=== PATIENT | male | born 1955 | race Caucasian/White ===

== ENCOUNTER 2017-05-27 14:58 | Emergency (ER) | payer OTHER ==
[~2017-05-27] VITALS: Ht 180.3 cm; Wt 88.5 kg
[~2017-05-27 14:58] MED LIST: CALC400T5 PO; [UNRECOGNIZED DRUG - CODE] IV
[2017-05-27 15:09] VITALS: BP 153/101
[2017-05-27] MEDS ORDERED: BUPIVACAINE 0.5% 50 ML VIAL. ONE (15:17)
[2017-05-27] MEDS ORDERED: LIDOCAINE 1% / SOD BICARB 8.4% 20 ML VIAL. IJ ONE ×2 (15:17→15:30)
[2017-05-27] MEDS ORDERED: BUPIVACAINE 0.5% 50 ML VIAL. IJ ONE (15:30)
[2017-05-27] MEDS ORDERED: SILVER NITRATE STICK TP ONE (15:44)
[2017-05-27] MEDS ORDERED: OXYC-323 PO (16:35)
[2017-05-27] MEDS ORDERED: CEPH-264 PO (16:35)
--- NOTE | 2017-05-27 16:35 | PHYS DOC ---
Past Medical History Past Medical History: COPD Past Surgical History: Other Additional Past Surgical Histo: back surgery, knee surgery, thumb, toe Alcohol Use: Occasionally Drug Use: None Adult General Chief Complaint Chief Complaint: LACERATION/AVULSION HPI HPI Patient is a 62 year old male presenting to the emergency department for evaluation of right fingertip amputation sustained while using his crossbow and his finger was caught and straining snapped back and hit the dorsal aspect of his right thumb and he has most of his fingernails attached on his partially amputated fingertip. He says that his tetanus status is up-to-date. He denies any diabetes and he says that he quit smoking 4 years ago. Review of Systems Review of Systems Constitutional: Denies fever or chills [] Integument: + laceration Neurologic: Denies focal weakness or sensory changes [ All other systems were reviewed and found to be within normal limits, except as documented in this note. Current Medications Current Medications Current Medications Medications (Trade) Dose Ordered Sig/Coni Start Time Stop Time Status Last Admin Dose Admin Bupivacaine HCl (Marcaine 0.5%) 50 ml 1X ONCE 05/27/17 15:30 05/27/17 15:31 DC 05/27/17 15:41 50 ML Lidocaine/Sodium Bicarbonate (Buffered Lidocaine 1%) 20 ml 1X ONCE 05/27/17 15:30 05/27/17 15:31 DC 05/27/17 15:42 20 ML Allergies Allergies Allergies Coded Allergies Type Severity Reaction Last Updated Verified No Known Drug Allergies 03/22/14 No Physical Exam Physical Exam Constitutional: Well developed, well nourished, no acute distress, non-toxic appearance. [] Extremities: Right fingertip partially amputated basically from the base of his fingertip. There is a flap of skin that is connected medially and has color to it so I think that it could be salvaged potentially. The distal 3/4 his fingertip is on the partially amputated piece. Neurologic: Alert and oriented X 3, normal motor function, normal sensory function, no focal deficits noted. [] Current Patient Data Vital Signs Vital Signs Date Time Temp Pulse Resp B/P (MAP) Pulse Ox O2 Delivery O2 Flow Rate FiO2 05/27/17 15:09 98.0 95 20 153/101 (118) 95 Room Air 98.0 EKG EKG [] Radiology/Procedures Radiology/Procedures Distal tuft fracture on his hand x-ray. Impressions: Indication: [Right thumb partial amputation] Procedure: The patient was placed in the appropriate position and anesthesia approximately 8 mL of a 1-1 lidocaine 0.5% Marcaine mixture injected into base of right thumb for a satisfactory digital block. The area was then cleansed and agreed extensively with a copious amount of irrigation. The laceration was closed with 8 5-0 nylon sutures to tack down his amputated part of his thumb. Total repaired wound length: 3 cm The patient tolerated the procedure well Complications: None Course & Med Decision Making Course & Med Decision Making I was able to tack down his partially amputated piece however he does have most of his fingernail removed and bone is palpable through his nail matrix. I spoke to the hand surgeon at [facility] Dr. Barrientos and he states that he would be happy to see the patient on Monday as he will likely need his bone rongeured. Patient will be put on antibiotics and given Percocet for pain and told to return with any concerns of worsening pain swelling fevers infection or other general concerns. Patient aware and agreeable with plan and verbalized understanding of the above instructions. Dragon Disclaimer Dragon Disclaimer This electronic medical record was generated, in whole or in part, using a voice recognition dictation system. Departure Departure Impression: Primary Impression: Fingertip amputation Additional Impression: Open fracture of tuft of distal phalanx of right thumb Disposition: HOME, SELF-CARE Condition: STABLE Referrals: NIR MOFFETT (PCP) Patient Instructions: Fingertip Injuries and Amputations Additional Instructions: TAKE 400MG OF IBUPROFEN EVERY 6 HOURS FOR PAIN AND THE PERCOCET FOR BREAKTHROUGH PAIN. FOLLOW WITH THE HAND SURGEON ON MONDAY AND COME BACK TO THE ED WITH ANY CONCERNS OF INFECTION OR OTHER GENERAL CONCERNS. THANK YOU! Scripts Oxycodone/Apap 5-325 (PERCOCET 5-325 MG TABLET) 1 Each Tablet 1 TAB PO PRN Q6HRS Y for PAIN, #20 TAB 0 Refills Prov: BIJU AGUILAR DO 05/27/17 Cephalexin (KEFLEX) 500 Mg Capsule 1 CAP PO TID, #15 CAP Prov: BIJU AGUILAR DO 05/27/17 Problem Qualifiers Primary Impression: Fingertip amputation Encounter type: initial encounter Qualified Codes: S68.129A - Partial traumatic metacarpophalangeal amputation of unspecified finger, initial encounter BIJU AGUILAR DO May 27, 2017 16:35
--- NOTE | 2017-05-28 08:10 | RAD ---
HAND RIGHT 3V History:Sliced end of the thumb Comparison: None Findings:4 views of the right hand with attention to the first digit are submitted. There is comminuted slightly displaced of fracture involving the tuft of the first digit. There is adjacent soft tissue laceration. Small foreign body would be difficult to distinguish from the small bone fragments. Impression: 1.There is comminuted fracture involving the tuft of the first digit with associated soft tissue laceration compatible with open fracture. Small radiopaque foreign body would be difficult to distinguish from the bone fragments.
== END 2017-05-27 16:45 | disposition home or self-care (01) ==
LOC: ER 14:58
DX: S62.521A Displaced fracture of distal phalanx of right thumb, initial encounter for closed fracture (principal); S68.021A Partial traumatic metacarpophalangeal amputation of right thumb, initial encounter; W31.89XA Contact with other specified machinery, initial encounter; Y93.89 Activity, other specified; Y99.8 Other external cause status; Y92.89 Other specified places as the place of occurrence of the external cause
CPT/HCPCS: 12042; 73130; 99284; J3490

== ENCOUNTER → 2018-02-06 | Outpatient (CLI) | payer OTHER ==
[2018-02-06] MEDS: REGADENOSON 0.4 MG/5 ML DISP.SYRIN. IV (09:40)
== END | disposition home or self-care (01) ==
LOC: ECHO 07:34
DX: M79.604 Pain in right leg (principal); M79.605 Pain in left leg; J44.9 Chronic obstructive pulmonary disease, unspecified; E78.00 Pure hypercholesterolemia, unspecified; R06.09 Other forms of dyspnea
CPT/HCPCS: 78452; 93017; 93306; 93925; 96374; 96375; 96376; A9500; J2785

== ENCOUNTER → 2018-11-01 | Outpatient (CLI) | payer OTHER ==
[~2018-11-01] MED LIST changes: +CEPH-264 PO; +IOHEXOL 350 MG/ML 100 ML VIAL. IV ONE; +OXYC1TAB15 PO
[2018-11-01 07:52] LABS: CREATININE 1.1 mg/dL (0.7-1.3); GFR 67.2
--- NOTE | 2018-11-01 09:08 | RAD ---
Chest CTA History: Shortness of air Technique: After bolus of intravenous contrast, CT imaging was performed of the chest. Multiplanar reconstruction images to include MIP reconstruction images are submitted. Exposure: One or more of the following individualized dose reduction techniques were utilized for this examination: 1. Automated exposure control 2. Adjustment of the mA and/or kV according to patient size 3. Use of iterative reconstruction technique. Comparison: March 27, 2014 Findings: [ ] No pulmonary embolism is identified. There is no pleural or pericardial effusion, pneumothorax, or significant infiltrate. There is moderate to severe centrilobular emphysema with upper zone predominance. Thoracic aortic caliber is within normal limits, no intraluminal flap. There are some subcentimeter right hilar nodes and small mediastinal nodes overall decreased in size. Largest right hilar node measures about 0.9 cm short axis dimension versus previously about 1.3 cm. Tiny 0.2 cm nodule along the left major fissure of the left lower lobe image 82 series 3 is similar. No new suspicious pulmonary nodularity is identified. There is diffuse hepatic steatosis. There is some subtle slightly nodular appearing enhancement of the left lobe of the liver otherwise difficult to characterize if a subtle underlying lesion such as related to nodular enhancement from hemangioma or related to vessels. There is shared origin of the brachiocephalic and left common carotid arteries. Impression: 1. No pulmonary embolism is identified. 2. There is centrilobular emphysema with upper zone predominance. 3. There is slightly nodular appearance of enhancement of the left lobe of the liver although possibly due to more tortuous vessels in this region rather than subtle lesion otherwise difficult to characterize. There is hepatic steatosis. Electronically signed by: Manuel Santana MD (11/01/2018 9:04 AM) [id number]
== END | disposition home or self-care (01) ==
LOC: CT 07:00
PROVIDERS: ATTEND Internal Medicine Pulmonary Disease
DX: J43.2 Centrilobular emphysema (principal); R91.8 Other nonspecific abnormal finding of lung field; K76.0 Fatty (change of) liver, not elsewhere classified; J98.59 Other diseases of mediastinum, not elsewhere classified
CPT/HCPCS: 36415; 71275; 82565; 84520; Q9967

== ENCOUNTER → 2020-09-04 | Outpatient (CLI) | payer MEDICARE ==
[~2020-09-04] MED LIST changes: +FLUT1BLS3 IH; +HYDR-2763 PO; -IOHEXOL 350 MG/ML 100 ML VIAL. IV ONE; +MULT-245 PO; +OMEG1CAP27 PO
== END ==
LOC: LAB 09:31
PROVIDERS: ATTEND Orthopaedic Surgery
DX: Z01.812 Encounter for preprocedural laboratory examination (principal); G56.01 Carpal tunnel syndrome, right upper limb; Z20.822 Contact with and (suspected) exposure to COVID-19
CPT/HCPCS: U0003

== ENCOUNTER 2020-09-08 08:39 | Day surgery (SDC) | payer MEDICARE ==
[~2020-09-08] VITALS: Ht 180.3 cm; Wt 92.5 kg
[~2020-09-08 08:39] MED LIST changes: -HYDR-2763 PO; +HYDROmorphone 2 MG/ML VIAL IVP PRN; +MORPHINE SULFATE 2 MG/ML VIAL. IVP PRN; +PROCHLORPERAZINE 10 MG/2 ML VIAL. IVP PRN; +fentaNYL PF VIAL 100 MCG/2 ML VIAL IVP PRN
[2020-09-08] MEDS: IV RINGERS,LACTATED 1000ML 1,000 ML IV SCH (09:11)
[2020-09-08 09:17] LABS: BASO # 0.1 x10^3/uL (0.0-0.2); BASO % 1 % (0-3); EOS # 0.4 x10^3/uL (0.0-0.7); EOS % 5 % (0-3); HEMATOCRIT 41.5 % (39.0-53.0); HEMOGLOBIN 14.3 g/dL (13.0-17.5); LYMPH # 1.6 x10^3/uL (1.0-4.8); LYMPH % 24 % (24-48); MEAN CORPUSCULAR HEMOGLOBIN 32 pg (25-35); MEAN CORPUSCULAR HGB CONC 34 g/dL (31-37); MEAN CORPUSCULAR VOLUME 93 fL (79-100); MONO # 0.9 x10^3/uL (0.0-1.1); MONO % 13 % (0-9); NEUT # 3.8 x10^3/uL (1.8-7.7); NEUT % 57 % (31-73); PLATELET COUNT 166 x10^3/uL (140-400); RED BLOOD COUNT 4.48 x10^6/uL (4.30-5.70); RED CELL DISTRIBUTION WIDTH 13.4 % (11.5-14.5); WHITE BLOOD COUNT 6.8 x10^3/uL (4.0-11.0)
[2020-09-08 09:24] LABS: CALCIUM 8.3 mg/dL (8.5-10.1); CREATININE 1.1 mg/dL (0.7-1.3); GFR 66.8; POTASSIUM 4.2 mmol/L (3.5-5.1)
[2020-09-08] MEDS ORDERED: PROPOFOL 50 ML IV ONE ×2 (10:02→11:16)
[2020-09-08] MEDS ORDERED: MIDAZOLAM HCL/PF 2 MG/2 ML VIAL. ONE (10:02)
[2020-09-08] MEDS ORDERED: LIDOCAINE 2% PF 5 ML VIAL. ONE ×3 (10:03)
[2020-09-08] MEDS ORDERED: 0.9 % SODIUM CHLORIDE 20 ML VIAL. IJ ONE ×2 (10:03)
[2020-09-08] MEDS: BUPIVACAINE MPF 0.25% 30 ML VIAL. ONE (11:29)
[2020-09-08] MEDS ORDERED: HYDR-2763 PO (11:40)
--- NOTE | 2020-09-08 11:43 | DISCH ---
DISCHARGE INSTRUCTIONS Condition on Discharge Condition on Discharge: Stable Activity After Discharge Activity Instructions for Disc: Other, see below (Avoid hard grasp, fine motor use allowed such as eating writing typing) Lifting Instructions after Dis: No heavy lifting Weight Bearing Status after Di: Non weight bearing Diet after Discharge Diet after Discharge: Regular Wound Incision Care Wound/Incision Care: Do not change dressing (Change dressing only if wet or soiled) Contacting the DRHi after DC Call your doctor for: Concerns you may have Follow-Up Follow up with: Dr. Townsend 10 to 14 days ADRIAN TOWNSEND MD Sep 08, 2020 11:43
[2020-09-08] MEDS: HYDROcodone/APAP 7.5/325MG 1 TAB TABLET PO ONE (12:11)
[2020-09-08 12:19] VITALS: BP 141/84
--- NOTE | 2020-09-08 15:20 | PDOC4 ---
Operative Note Operative Note Date of surgery: 07/31/2020 Preoperative diagnosis: Right carpal tunnel syndrome and ganglion cyst radial volar aspect of right wrist Postoperative diagnosis: Same with ganglion cyst consistent appearance and moderate median nerve compression at the carpal tunnel Operative procedure: Right carpal tunnel release, excision ganglion cyst volar right wrist Surgeon: Kristian B2B Appointment Setter: Gautam us Anesthesia: Crane block Estimated blood loss: 1 cc Complications: None Operative indications: Please see my orthopedic clinic note for detailed operative indications and note that patient has recurrent numbness in the median nerve distribution of her right hand and median nerve compression at the carpal tunnel confirmed by EMG testing. I had gone over with him the possibility of incomplete relief nerve or blood vessel damage infection medical or other anesthetic complications including incisional tenderness among others as well as the possibility of ganglion cyst recurrence all his questions were answered he wishes to proceed with surgical evaluation and treatment. Operative text: Patient was identified procedure verified patient placed in the supine position on the operating table. After adequate amounts of Traci block anesthesia were administered the right upper extremity was prepped and draped in standard sterile fashion and after timeout was performed patient procedure identified and verified a longitudinal incision was made just distal to the distal wrist crease. Dissection was carried out to the ulnar aspect of the carpal tunnel and sharp dissection carried out along the extent of the transverse carpal ligament. Median nerve was noted to have moderate compression and flexor tendons were free from any synovitis. Median nerve was well medial to the dissection of the transverse carpal ligament. Release of the transverse carpal ligament was verified to be complete both proximally and distally. Thorough irrigation carried out normal saline solution. Attention was then turned to the mass over the radial volar aspect of the wrist and a longitudinal incision was made dissection carried out to protect neurovascular structures and the multilobulated ganglion cyst was excised sharply bleeding points controlled by electrocautery including at the base of the ganglion which was cauterized. The cyst wall was sent for pathologic evaluation. Thorough irrigation carried out normal saline solution and closure accomplished with nylon suture. Sterile dressings were then applied and fingers were noted to be warm pink following deflation of the tourniquet. Patient was returned to recovery room in stable condition having tolerated the procedure well. Gautam us was present for the procedure and assisted in patient positioning prepping draping retraction closure and dressings ADRIAN CORTEZ MD Sep 08, 2020 15:20
--- NOTE | 2020-09-10 14:08 | PATHOLOGY ---
[facility] Accession Number: [id number] . 01 Material submitted: . wrist - GANGLION CYST RIGHT WRIST. Modifiers: right . 01 Clinical history: . RIGHT CARPAL TUNNEL RELEASE . 02 Diagnosis: Segments of fibroadipose tissue, right wrist: - Ganglion cyst. (JPM:kermit; 09/10/2020) S 09/10/2020 0900 Local . 02 Electronically signed: . Matthew Silva MD, Pathologist NPI- [id number] . 01 Gross description: . The specimen is received in formalin, labeled "Kory Kumar", "right wrist ganglion cyst". Received are 2 segments of pale yellow-vincent soft tissue measuring 0.8 and 1.0 cm. The larger segment appears to be a previously ruptured pale white cyst partially filled with a small amount of clear mucoid material. No solid components are identified. The specimen is entirely submitted in cassette A1.([facility]; 09/09/2020) KAI/RENAE 09/09/2020 1514 Local . 02 Pathologist provided ICD-10: M67.431 . 02 CPT . 071263 Specimen Comment: A courtesy copy of this report has been sent to [phone] Specimen Comment: Report sent to / Performed at: 01 [facility] [address], [place] [id number] MD Arthur Sanchez MD Phone: [phone] Performed at: 02 [facility] [address] [place], [place] [id number] MD Matthew Silva MD Phone: [phone]
== END 2020-09-08 12:40 | disposition home or self-care (01) ==
LOC: SURG 08:39
PROVIDERS: ATTEND Orthopaedic Surgery
DX: G56.01 Carpal tunnel syndrome, right upper limb (principal); M67.431 Ganglion, right wrist; J44.9 Chronic obstructive pulmonary disease, unspecified; Z87.891 Personal history of nicotine dependence; Z79.899 Other long term (current) drug therapy; Z98.890 Other specified postprocedural states; Z72.89 Other problems related to lifestyle; Z82.49 Family history of ischemic heart disease and other diseases of the circulatory system; Z83.3 Family history of diabetes mellitus
CPT/HCPCS: 25111; 36415; 64721; 80048; 85025; 88304; A4213; A4930; A6402; J0690; J2250; J2704; J3490; A4222; A4657; A6452

== ENCOUNTER 2021-05-07 12:02 | Emergency (ER) | payer MEDICARE ==
[~2021-05-07] VITALS: Ht 182.9 cm; Wt 95.3 kg
[~2021-05-07 12:02] MED LIST changes: +HYDR-2763 PO; -HYDROmorphone 2 MG/ML VIAL IVP PRN; -MORPHINE SULFATE 2 MG/ML VIAL. IVP PRN; -PROCHLORPERAZINE 10 MG/2 ML VIAL. IVP PRN; -fentaNYL PF VIAL 100 MCG/2 ML VIAL IVP PRN
[2021-05-07 13:56] VITALS: BP 129/79
--- NOTE | 2021-05-07 14:07 | PHYS DOC ---
Past Medical History Past Medical History: COPD (SHANIQUA MATTHEWS APRN) Past Surgical History: Other Additional Past Surgical Histo: back surgery, knee surgery, thumb, toe (SHANIQUA MATTHEWS APRN) Smoking Status: Former Smoker Alcohol Use: Occasionally Drug Use: None (SHANIQUA MATTHEWS APRN) General Adult EDM: Chief Complaint: BACK PAIN OR INJURY HPI: HPI: Patient is a 66-year-old male that presents today with back pain. Patient states his pain started this summer around December early December, he has seen his primary care physician for this he had an MRI done on 05/06/2021, impressions are an L3-L4 right foraminal extraforaminal herniation with narrowing, L4-L5 there is a left subarticular to the foraminal herniation with a left lateral recess and foraminal narrowing and additional degenerative changes in lumbar spine is noted per the report the family brought in to the emergency department. Patient states he has been taking prescription strength NSAID and Flexeril and that has not been helping his pain. Patient describes pain only occurring in the right leg it does travel on the back of the leg to the ankle and also into the groin area as well. Patient states he has not had any loss of bowel or bladder control he is able to have bowel movements and start his stream. (SHANIQUA MATTHEWS APRN) Review of Systems: Review of Systems: Constitutional: Denies fever or chills. [] Eyes: Denies change in visual acuity. [] HENT: Denies nasal congestion or sore throat. [] Respiratory: Denies cough or shortness of breath. [] Cardiovascular: Denies chest pain or edema. [] GI: Denies abdominal pain, nausea, vomiting, bloody stools or diarrhea. [] : Denies dysuria. [] Musculoskeletal: Low back pain with shooting pain to the right leg and right groin area. Integument: Denies rash. [] Neurologic: Denies headache, focal weakness or sensory changes. [] Endocrine: Denies polyuria or polydipsia. [] Lymphatic: Denies swollen glands. [] Psychiatric: Denies depression or anxiety. [] (SHANIQUA MATTHEWS APRN) Heart Score: C/O Chest Pain: N/A Risk Factors: Risk Factors: DM, Current or recent (<one month) smoker, HTN, HLP, family history of CAD, obesity. Risk Scores: Score 0 - 3: 2.5% MACE over next 6 weeks - Discharge Home Score 4 - 6: 20.3% MACE over next 6 weeks - Admit for Clinical Observation Score 7 - 10: 72.7% MACE over next 6 weeks - Early Invasive Strategies (SHANIQUA MATTHEWS APRN) Allergies: Allergies: Allergies Coded Allergies Type Severity Reaction Last Updated Verified No Known Drug Allergies 09/08/20 No (SHANIQUA MATTHEWS APRN) Physical Exam: PE: Constitutional: Well developed, well nourished, no acute distress, non-toxic appearance. [] HENT: Normocephalic, atraumatic, bilateral external ears normal, oropharynx moist, no oral exudates, nose normal. [] Eyes: PERRLA, EOMI, conjunctiva normal, no discharge. [] Neck: Normal range of motion, no tenderness, supple, no stridor. [] Cardiovascular:Heart rate regular rhythm, no murmur [] Lungs & Thorax: Bilateral breath sounds clear to auscultation [] Abdomen: Bowel sounds normal, soft, no tenderness, no masses, no pulsatile masses. [] Skin: Warm, dry, no erythema, no rash. [] Back: L4-L5 area pain with palpation patient has states he has radiculopathy pain down the back of his right leg traveling from the hip area all the way down to the ankle does have some pain that does wrap around into the right groin area. Patient does have a stable gait Extremities: No tenderness, no cyanosis, no clubbing, ROM intact, no edema. [] Neurologic: Alert and oriented X 3, normal motor function, normal sensory function, no focal deficits noted Psychologic: Affect normal, judgement normal, mood normal. [] (SHANIQUA MATTHEWS APRN) EKG: EKG: [] (SHANIQUA MATTHEWS APRN) Radiology/Procedures: Radiology/Procedures: Impressions from MRI completed on 05/06/2021 at [facility] 1. at L3-4 there is a right foraminal/extraforaminal herniation with foraminal narrowing 2.At the L4-5 there is a left subarticular to foraminal herniation with left lateral recess and foraminal norrowing 3. Additional degeneration changes in the lumbar spine. Full report copy taken. [] (SHANIQUA MATTHEWS APRN) Course & Med Decision Making: Course & Med Decision Making Pertinent Labs and Imaging studies reviewed. (See chart for details) Spoke to patient about plan of care about starting an IV and getting patient admitted. Patient does not wish to be admitted nor does he wish to have an IV or be admitted he only wants a prescription for some pain medications he does have an appointment with Dr. Novak the neurosurgeon here at [facility] for evaluation of this back pain. Again patient states he does not have any bowel or bladder issues such as starting his stream or having a bowel movement or loss of bowel or bladder control. Patient does have a prescription for Flexeril and Diclofenac. We will give patient 2 [place] as well in the department and also sent home with some for pain management. Spoke to Dr. David regarding finding and he feels this is an appropriate plan of care. We will give strict return precautions if patient do has any neurological deficits, bowel or bladder issues, or pain becomes unable to be controlled by by mouth medications at home to return to the emergency department (SHANIQUA MATTHEWS APRN) Course & Med Decision Making I have participated in the care of this patient and I have reviewed and agree with all pertinent clinical information above including history, exam, and recommendations. As documented above, patient is offered admission, neurosurgery consult and refused. Patient will follow up with Dr. Cheung as scheduled. No signs of acute cauda equina syndrome or acute spinal cord syndrome on exam. Strict return precautions were discussed with the patient by INVESTOR RELATIONS SPECIALIST. Agustin David DO (AGUSTIN DAVID DO) Roberto Carlos Disclaimer: Roberto Carlos Disclaimer: This electronic medical record was generated, in whole or in part, using a voice recognition dictation system. (SHANIQUA MATTHEWS APRN) Departure Departure Impression: Primary Impression: Back pain at L4-L5 level Disposition: 01 HOME / SELF CARE / HOMELESS Condition: STABLE Referrals: NIR MOFFETT (PCP) DOLLY CHEUNG MD Patient Instructions: Back Pain, Adult Additional Instructions: Continue to take the Flexeril and the nonsteroidal anti-inflammatory as labeled directed [place] take as labeled directed for severe pain, watch for any signs of constipation increase fiber in diet and oral fluids Return to the emergency department if you experience loss of bowel or bladder control, inability to have a bowel movement or urinate, right leg becomes numb or the inability to use your leg occurs, you have complete numbness or tingling in the leg, your pain is unable to be controlled by the oral medications you have been given. Keep your appointment with Dr. Novak on May 11, 2021. Scripts Hydrocodone/Acetaminophen (Hydrocodone-Acetamin 5-325 mg) 1 Each Tablet 1 EACH PO PRN Q4-6HRS PRN for PAIN, #20 TAB Prov: SHANIQUA MATTHEWS APRN 05/07/21 SHANIQUA MATTHEWS APRN May 07, 2021 14:07 AGUSTIN DAVID DO May 08, 2021 06:18
[2021-05-07] MEDS ORDERED: HYDR-2759 PO (14:12)
[2021-05-07] MEDS ORDERED: HYDROcodone/APAP 5/325MG 1 TAB TABLET PO ONE (14:15)
== END 2021-05-07 14:26 | disposition home or self-care (01) ==
LOC: ER 12:02
DX: M54.50 Low back pain, unspecified (principal); J44.9 Chronic obstructive pulmonary disease, unspecified; Z87.891 Personal history of nicotine dependence
CPT/HCPCS: 99283

== ENCOUNTER → 2021-06-01 | Outpatient (CLI) | payer MEDICARE ==
[2021-05-07 13:56] VITALS: BP 129/79
[~2021-06-01] MED LIST changes: +CYCL5TAB PO; +HYDR-2759 PO; +METH-562 PO
[2021-06-01 14:52] LABS: BASO # 0.1 x10^3/uL (0.0-0.2); BASO % 1 % (0-3); EOS # 0.4 x10^3/uL (0.0-0.7); EOS % 5 % (0-3); HEMATOCRIT 47.4 % (39.0-53.0); HEMOGLOBIN 16.3 g/dL (13.0-17.5); LYMPH # 1.9 x10^3/uL (1.0-4.8); LYMPH % 23 % (24-48); MEAN CORPUSCULAR HEMOGLOBIN 32 pg (25-35); MEAN CORPUSCULAR HGB CONC 35 g/dL (31-37); MEAN CORPUSCULAR VOLUME 92 fL (79-100); MONO % 11 % (0-9); NEUT # 5.1 x10^3/uL (1.8-7.7); NEUT % 60 % (31-73); PLATELET COUNT 218 x10^3/uL (140-400); RED BLOOD COUNT 5.16 x10^6/uL (4.30-5.70); RED CELL DISTRIBUTION WIDTH 12.4 % (11.5-14.5); WHITE BLOOD COUNT 8.4 x10^3/uL (4.0-11.0)
[2021-06-01 14:59] LABS: ALBUMIN 3.8 g/dL (3.4-5.0); CALCIUM 8.7 mg/dL (8.5-10.1); GFR 74.3; POTASSIUM 4.1 mmol/L (3.5-5.1); TOTAL BILIRUBIN 0.4 mg/dL (0.2-1.0); TOTAL PROTEIN 7.5 g/dL (6.4-8.2)
== END ==
LOC: SURGPAT 13:22
PROVIDERS: ATTEND Neurological Surgery
DX: Z01.812 Encounter for preprocedural laboratory examination (principal); M51.16 Intervertebral disc disorders with radiculopathy, lumbar region
CPT/HCPCS: 36415; 80053; 85025; 87641

== ENCOUNTER 2021-06-04 07:02 | Day surgery (SDC) | payer MEDICARE ==
[2021-06-01 14:25] VITALS: BP 129/81
[2021-06-02 11:21] VITALS: BP 129/8
--- NOTE | 2021-06-03 07:57 | PREOP HP ---
DATE OF SERVICE: 06/04/2021 PREOPERATIVE HISTORY AND PHYSICAL HISTORY OF PRESENT ILLNESS: The patient is a pleasant 66-year-old who is having problems with severe low back pain that radiates to his right leg. The pain can radiate to the anterior thigh and anterior leg. The problem started a few months ago and became worse. It is much worse a few weeks ago. The pain is constant 8-9/10. Lying down and then getting up increases his pain. Lying down and not moving helps. He has been taking hydrocodone or Percocet to help with his pain. A Medrol Dosepak was given without much benefit. He has had no conservative measures, but has been to the ER because of severe pain. CURRENT MEDICATIONS: Trelegy Ellipta, muscle relaxers including Flexeril, diclofenac and hydrocodone, oxycodone. PAST MEDICAL HISTORY: Arthritis, COPD. PAST SURGICAL HISTORY: Knee surgery in 2003, toe surgery in 2001, left thumb surgery in 2002 and lumbar microdiskectomy L4-5 left in 2012. FAMILY HISTORY: Alzheimer disease, cancer, diabetes, heart disease, hypertension. SOCIAL HISTORY: Retired, single, smokes half pack per day for 30 years. Drinks alcohol 1-2 times per week. REVIEW OF SYSTEMS: A 12-point review of systems was performed and is noncontributory except that mentioned above. PHYSICAL EXAMINATION: GENERAL: Alert, pleasant, in no acute distress. HEAD: Normocephalic, atraumatic. SKIN: Warm and dry. Well-healed lumbar incision. MUSCULOSKELETAL: Lumbar paraspinal muscle bulk is normal, restricted range of motion of the lumbar spine, [id number] tenderness of the lower lumbar spine with palpation, normal range of motion of the lower extremities bilaterally. EXTREMITIES: No clubbing, cyanosis or edema. NEUROLOGIC: Alert and oriented x 3. Strength is 5/5 in the lower extremities except 4/5 right hip flexor, sensory was intact to light touch in the lower extremities except for decreased light touch involving the anterior thigh and superior anterior leg on the right, reflexes were present and symmetric in the lower extremities bilaterally except for an absent right knee jerk, negative straight leg raising bilaterally, positive femoral stretch test on the right, negative femoral stretch test on the left, normal gait. IMAGING: I reviewed a lumbar MRI scan from 05/06/2021. On that study at L3-4, there is a large right foraminal and extraforaminal disk herniation which is associated with severe right foraminal stenosis. At L4-5, there is a left subarticular herniation. ASSESSMENT AND PLAN: I believe the herniated disk at L3-4 on the right is responsible for his very severe right anterior thigh and leg pain. We spoke about treatment options including epidural steroid injections and physical therapy. At this point, he would like to go straight to surgery because of his very significant pain and difficulty ambulating. I recommended a transforaminal microdiskectomy at L3-4 on the right. I explained the technique of the surgery and the risk as well as the expected postoperative course. He understands and would like to go ahead. We will make the arrangements. LIZ DR: Lilly TID: [id number]
[~2021-06-04] VITALS: Ht 180.3 cm; Wt 93.1 kg
[~2021-06-04 07:02] MED LIST changes: +DEXAMETHASONE SOD PHOS 4 MG/ML VIAL ONE; +GLYCOPYRROLATE 1 MG/5 ML VIAL. ONE; +IV RINGERS,LACTATED 1000ML 1,000 ML IV SCH; +KETAMINE HCL IN NACL, ISO-OSM 50 MG/5 ML SYRINGE ONE; +LIDOCAINE 2% PF 5 ML VIAL. ONE; -METH-562 PO; +MORPHINE SULFATE 2 MG/ML INJ. IVP PRN; +NEOSTIGMINE METHYLSULFATE 5 MG/5 ML SYRINGE. ONE; +ONDANSETRON PF 4 MG/2 ML VIAL. ONE; +PHENYLEPHRINE 10 MG/ML VIAL. ONE; +PROCHLORPERAZINE 10 MG/2 ML VIAL. IVP PRN; +PROPOFOL 10 MG/ML (20ML) VIAL. IV ONE; +PROPOFOL 50 ML IV ONE; +REMIFENTANIL 1 MG VIAL. IV ONE; +ROCURONIUM 50 MG/5 ML VIAL. ONE; +SEVOFLURANE > 120 MINUTES. IH ONE; +SUCCINYLCHOLINE 200 MG/10 ML VIAL. ONE; +ceFAZolin SODIUM 1 GM in IV NORMAL SALINE 1000ML BAG 1,000 ML IRR ONE; +fentaNYL PF VIAL 100 MCG/2 ML VIAL IVP PRN; +fentaNYL PF VIAL 100 MCG/2 ML VIAL ONE
[2021-06-04] MEDS ORDERED: GELATIN SPONGE SIZE 100. ONE (07:19)
[2021-06-04] MEDS ORDERED: BUPIVACAINE-EPI 0.5% 30 ML VIAL KIT. ONE ×2 (07:19→07:20)
[2021-06-04] MEDS ORDERED: KETOROLAC 60 MG/2 ML VIAL. ONE (07:20)
[2021-06-04] MEDS ORDERED: THROMBIN TOPICAL 20,000 UNIT SPRAY.SYRN KIT TP ONE (07:20)
[2021-06-04] MEDS ORDERED: PROPOFOL 50 ML IV ONE ×2 (07:23→08:51)
[2021-06-04] MEDS ORDERED: DEXAMETHASONE SOD PHOS 4 MG/ML VIAL ONE (07:23)
[2021-06-04] MEDS ORDERED: HYDROmorphone 2 MG/ML VIAL ONE ×2 (09:11→11:47)
[2021-06-04] MEDS ORDERED: METH-562 PO (11:34)
[2021-06-04] MEDS ORDERED: OXYC1TAB15 PO (11:34)
--- NOTE | 2021-06-04 11:36 | DISCH ---
DISCHARGE INSTRUCTIONS Condition on Discharge Condition on Discharge: Stable Activity After Discharge Activity Instructions for Disc: Activity as tolerated, Avoid exertion, Other, see below Other activity instructions: no driving for a week Bathing Instructions: Shower-keep dressing dry Lifting Instructions after Dis: No heavy lifting Weight Bearing Status after Di: Non weight bearing Diet after Discharge Diet after Discharge: Regular Additional Diet Restrictions: resume home diet Wound Incision Care Wound/Incision Care: Ice to area for comfort, Do not change dressing Other wound/incision instructi: may remove dressing in 48 hours if dry then may shower, no soaking Contacting the DRHi after DC Call your doctor for: Concerns you may have Follow-Up Follow up with: Dr. Cheung in 2 weeks [phone] DOLLY CHEUNG MD Jun 04, 2021 11:36
[2021-06-04] MEDS: HYDROmorphone 2 MG/ML VIAL IVP PRN ×4 (11:53→12:38)
--- NOTE | 2021-06-04 12:23 | OP ---
DATE OF SURGERY: 06/04/2021 PREOPERATIVE DIAGNOSIS: Foraminal disc herniation, right L3-L4 with severe right lumbar radiculopathy. POSTOPERATIVE DIAGNOSIS: Foraminal disc herniation, right L3-L4 with severe right lumbar radiculopathy. OPERATION PERFORMED: Transfacet hemilaminotomy with transfacet exposure, removing of far lateral/foraminal disc herniation compressing the L3 root in the foramen. The operation was done with EMG monitoring, SSEP monitoring, fluoroscopy, microscopic dissection. SURGEON: Byron Walker M.D. SAP ANALYST: KALINA Valderrama, assisted with the surgery. He assisted with the exposure, the microdecompression, microdiscectomy as well as the closure. SPECIMEN: Disc and decompression. OPERATIVE INDICATIONS: The patient is a pleasant 66-year-old man who developed severe intractable back and right leg pain, which failed conservative measures. On imaging studies, he had a large foraminal and extraforaminal disc herniation at L3-L4 on the right and I recommended lumbar surgery. I discussed the surgery, the risks, the technique and expected postoperative course, he wished to go ahead. DESCRIPTION OF PROCEDURE: Following general endotracheal anesthesia, the patient was positioned prone on the [place] table. Lumbar region prepped and draped in standard fashion. ANKIT hose and AV impulse boots were applied for DVT prophylaxis. The microscope was draped, fluoroscopy was draped and brought into the field and monitoring was established. Ancef 2 grams given less than one hour prior to initiation of surgery. Using fluoroscopic guidance, an incision was made over the L3-L4 interspace. I dissected down through skin and subcutaneous tissue, reflected the paraspinal muscles and placed a [place] microdisk retractor, brought in the microscope with remainder of surgery done with the microscope using microscopic technique. I burred down a lateral laminotomy. I then worked and unroofed the facet moving quite far laterally. I trimmed the facet, exposing the foramen, worked superiorly and visualized the L3 root as it rounded the pedicle laterally and I followed the root out. The root was compressed strongly against the inferior aspect of the L3 pedicle by a large foraminal disc herniation and I incised the ligament, annulus and I just gently worked and performed a discectomy. There were multiple small fragments, which I teased back and removed. I went quite far laterally and removed a moderately large disc from the lateral position and as I worked, the root became very free throughout its course. At this point, then I irrigated copiously with antibiotic solution. I explored carefully and I assured myself that the root was very free. I then followed the root out a considerable distance and there was no resistance. There were no difficulties. There was no evidence of compression at this point. I working more medially, I removed some of the medial disc as well and I felt that I had excellent decompression, irrigated. It had excellent hemostasis, removed the retractors, irrigated again and then I closed the wound in layers with absorbable suture and the skin was closed with 4-0 subcuticular stitch. I felt the surgery went very well. ASHWIN DR: Lucio TID: [id number] [email or web address]
[2021-06-04] MEDS ORDERED: oxyCODONE/APAP 5/325 1 TAB TABLET PO ONE (12:30)
[2021-06-04 12:46] VITALS: BP 155/82
== END 2021-06-04 13:36 | disposition home or self-care (01) ==
LOC: SURG 07:02
PROVIDERS: ATTEND Neurological Surgery
DX: M51.16 Intervertebral disc disorders with radiculopathy, lumbar region (principal); M19.90 Unspecified osteoarthritis, unspecified site; J44.9 Chronic obstructive pulmonary disease, unspecified; E78.00 Pure hypercholesterolemia, unspecified; Z87.891 Personal history of nicotine dependence; Z72.89 Other problems related to lifestyle; Z79.899 Other long term (current) drug therapy; Z98.890 Other specified postprocedural states; Z82.49 Family history of ischemic heart disease and other diseases of the circulatory system; Z88.8 Allergy status to other drugs, medicaments and biological substances
CPT/HCPCS: 63030; 88304; 88311; 97116; 97162; 97530; A4213; A4364; A4556; A4930; A6254; A6258; J0330; J0690; J1100; J1170; J1885; J2370; J2405; J2704; J2710; J3010; J3490; J7030; 76000